=== PATIENT | female | born 1995 | race Two or more races ===

== ENCOUNTER 2021-06-03 01:35 | Emergency (ER) | payer OTHER ==
[~2021-06-03] VITALS: Ht 160 cm; Wt 58.0 kg
--- NOTE | 2021-06-03 01:44 | NUR ---
assesment made. chart up for MD to see.
--- NOTE | 2021-06-03 01:48 | NUR ---
PA at bedside
[2021-06-03] MEDS ORDERED: IBUPROFEN 600 MG TABLET ONE (01:51)
[2021-06-03] MEDS ORDERED: IBUPROFEN 600 MG TABLET PO ONE (02:00)
[2021-06-03] MEDS ORDERED: IBUPROFEN 200 MG TABLET PO ONE (02:00)
--- NOTE | 2021-06-03 02:02 | NUR ---
PT C/O OF FEVER WITH 103.4 WHILE PT WAS WORKING. PT DENIES SOB, CP AND N/V ATTACHED TO MONITORS, VSS, NADN. PT TEMP 100.1 IN ER BED IN LOW, RAILS ENGAGED. CALL LIGHT ON LAP
[2021-06-03 02:26] VITALS: BP 122/74
--- NOTE | 2021-06-03 02:26 | NUR ---
Patient is resting comfortably in bed. Bed in lowest, rails engaged, call light on lap. VSS WITH SLIHTLY ELEVATED HR. TIKI. STEPHANIE
--- NOTE | 2021-06-03 02:57 | NUR ---
Patient/Caregiver given discharge instructions and they have confirmed that they understand the instructions. Patient ambulatory with steady gait. NAD, all questions answered appropriately, denies additional needs at this time. No personal belongings left in room after discharge.
== END 2021-06-03 02:59 | disposition home or self-care (01) ==
LOC: ED 01:45
DX: U07.1 COVID-19 (principal); J06.9 Acute upper respiratory infection, unspecified
CPT/HCPCS: 99283; U0003; U0005